=== PATIENT | male | born 1990 | race Caucasian/White ===

== ENCOUNTER → 2017-11-06 | Outpatient (CLI) | payer OTHER | LOC: BMCIMAGING 15:19 | PROVIDERS: ATTEND Orthopaedic Surgery Hand Surgery | DX: S52.571D Other intraarticular fracture of lower end of right radius, subsequent encounter for closed fracture with routine healing (principal); S52.572D Other intraarticular fracture of lower end of left radius, subsequent encounter for closed fracture with routine healing ==

== ENCOUNTER → 2017-11-27 | Outpatient (CLI) | payer OTHER | LOC: BMCIMAGING 15:28 | PROVIDERS: ATTEND Orthopaedic Surgery Hand Surgery | DX: S52.572D Other intraarticular fracture of lower end of left radius, subsequent encounter for closed fracture with routine healing (principal) ==

== ENCOUNTER → 2017-12-18 | Outpatient (CLI) | payer OTHER | LOC: BMCIMAGING 15:20 | PROVIDERS: ATTEND Orthopaedic Surgery Hand Surgery | DX: S52.572D Other intraarticular fracture of lower end of left radius, subsequent encounter for closed fracture with routine healing (principal) ==